=== PATIENT | female | born 1955 | race Caucasian/White ===

== ENCOUNTER 2016-06-28 18:59 | Emergency (ER) | payer MEDICAID, OTHER ==
[~2016-06-28] VITALS: Ht 154.9 cm; Wt 52.0 kg
[~2016-06-28 18:59] MED LIST: ACET-2047 PO; ACET500C5 PO; BENZ100C70 PO; FLUT16SP24 NASAL; GUAI118L14 PO; HYD25 PO; IBUP-1542 PO; PROM6.25 PO
[2016-06-28 19:14] VITALS: Ht 154.9 cm; Wt 52.0 kg
[2016-06-28] MEDS ORDERED: PRED15SO PO (19:28)
[2016-06-28] MEDS ORDERED: AMOX250S66 PO (19:28)
[2016-06-28] MEDS ORDERED: IBUP100O10 PO (19:28)
[2016-06-28] MEDS ORDERED: ATEN-51 PO (19:35)
--- NOTE | 2016-06-28 19:37 | ERD ---
ER Documentation Chief Complaint Date/Time DATE: 06/28/16 TIME: 19:[address] x 1 week that is worse today HPI 60 year old female presents here in the ER for complaints of sorethroat for 1 week. Patient describes the pain as throbbing pain 7/10 scale, worst on swallowing accompanied with hoarseness of the voice. Denies stridor or shortness of breath. Patient's complaining of on and off fever. Patient denies any cough, runny nose or nasal congestion. Patient did not take any medications to help with symptoms. ROS All systems reviewed and are negative except as per history of present illness. Medications Home Meds Active Scripts Prednisolone* (Prelone*) 15 Mg/5 Ml Solution, 5 ML PO BID for 5 Days, BOTTLE Prov:MARK MORALES NP 06/28/16 Ibuprofen (Ibuprofen) 100 Mg/5 Ml Oral.susp, 20 ML PO Q6H Y for PAIN AND OR ELEVATED TEMP, #8 OZ Prov:MARK MORALES NP 06/28/16 Amoxicillin* (Amoxicillin* Susp) 250 Mg/5 Ml Susp.recon, 10 ML PO TID for 10 Days, BOTTLE Prov:MARK MORALES NP 06/28/16 Acetaminophen* (Tylophen*) 500 Mg Capsule, 500 MG PO Q6H Y for FEVER, #15 TAB Prov:ALLY WYNNE NP 05/25/15 Guaifenesin/Codeine Phos (Guaifenesin W/Codeine Liq) 473 Ml Liquid, 10 ML PO Q6 , #240 Prov:ALLY WYNNE NP 05/25/15 Hydrochlorothiazide* (Hydrochlorothiazide*) 25 Mg Tab, 25 MG PO DAILY, #30 TAB Prov:TAZ JOHN PA-C 11/24/14 Fluticasone Propionate* (Flonase* Nasal) 50 Mcg/Meredith - 16 Gm Meredith.susp, 1 SPRAY NASAL DAILY, #1 BOTTLE Prov:TAZ JOHN PA-C 11/24/14 Promethazine w/Codeine* (Phenergan w/Codeine* Syrup) 5 Ml Syrup, 5 ML PO BEDSIDE MEDICATION Y for COUGH, #6 OZ Prov:TAZ JOHN PA-C 11/24/14 Benzonatate* (Tessalon Perle*) 100 Mg Capsule, 200 MG PO TID Y for COUGH, #30 CAP Prov:ALVAROTAZ PA-C 11/24/14 Acetaminophen* (Acetaminophen*) 650 Mg Tablet, 650 MG PO Q4H Y for PAIN AND OR ELEVATED TEMP, #15 TAB Prov:CHO,JAREN 10/19/14 Ibuprofen* (Motrin*) 600 Mg Tab, 600 MG PO Q6 for PAIN, #15 TAB Prov:CHO,JAREN 10/19/14 Promethazine w/Codeine* (Phenergan w/Codeine* Syrup) 5 Ml Syrup, 5 ML PO Q4H Y for COUGH, #4 OZ Prov:CHO,JAREN 10/19/14 Benzonatate* (Tessalon Perle*) 100 Mg Capsule, 200 MG PO Q8H Y for COUGH, #21 CAP Prov:CHO,JAREN 10/19/14 Reported Medications Atenolol* (Atenolol*) Unknown Strength Tablet, PO BID, #60 TAB 06/28/16 Allergies Allergies: Coded Allergies: No Known Allergy (Unverified , 04/07/14) PMhx/Soc History of Surgery: No Anesthesia Reaction: No Hx Neurological Disorder: No Hx Respiratory Disorders: No Hx Cardiac Disorders: Yes (HTN) Hx Psychiatric Problems: No Hx Miscellaneous Medical Probl: No Hx Alcohol Use: No Hx Substance Use: No Hx Tobacco Use: No FmHx Family History: No coronary disease, No diabetes, No other Physical Exam Vitals Vital Signs Date Time Temp Pulse Resp B/P Pulse Ox O2 Delivery O2 Flow Rate FiO2 06/28/16 19:14 98.2 105 16 197/84 99 Physical Exam GENERAL: The patient is well developed and appropriate for usual state of health, in no apparent distress. HEENT: Atraumatic. Ears: Normal tympanic membrane, no erythema or bulging. No ear canal swelling. No ear discharge. Nose: normal nasal turbinates, no erythema or swelling. Normal nasal discharge. Throat: oropharynx erythematous. No tonsillar swelling or tonsillar exudates. Noted hoarseness of the voice. No lymphadenopathy. CHEST: Clear to auscultation bilaterally. There are no rales, wheezes or rhonchi. HEART: Regular rate and rhythm. No murmurs, clicks, rubs or gallops. No S3 or S4. ABDOMEN: Soft, nontender and nondistended. Good bowel sounds. No rebound or guarding. No gross peritonitis. No gross organomegaly or masses. No Cho sign or McBurney point tenderness. BACK: No midline or flank tenderness. EXTREMITIES: Equal pulses bilaterally. There is no peripheral clubbing, cyanosis or edema. No focal swelling or erythema. Full range of motion. Grossly neurovascularly intact. NEURO: Alert and oriented. Cranial nerves 2-12 intact. Motor strength in all 4 extremities with 5/5 strength. Sensation grossly intact. Normal speech and gait. SKIN: There is no apparent rash or petechia. The skin is warm and dry. HEMATOLOGIC AND LYMPHATIC: There is no evidence of excessive bruising or lymphedema. No gross cervical, axillary, or inguinal lymphadenopathy. Procedures/MDM Medical decision making: Patient symptoms is likely consistent with laryngitis, possible bacterial infection. The symptoms of oral airway obstruction noted, no epiglottitis, no symptoms of peritonsillar abscess, no stridor. No symptoms of respiratory distress. No symptoms of any sepsis, patient appears well and is hemodynamically stable. Prescription was given for amoxicillin, ibuprofen, Prelone, was given liquid form, patient is advised follow up primary care doctor in 2 days for reevaluation of symptoms, if worse to return to emergency department, patient was also advised to see ENT specialist if symptoms continues to persist. Departure Diagnosis: Primary Impression: Laryngitis Condition: Stable Patient Instructions: Laryngitis MARK MORALES NP Jun 28, 2016 19:37
== END 2016-06-28 19:30 | disposition home or self-care (01) ==
LOC: E/R 18:59
DX: J04.0 Acute laryngitis (principal); I10 Essential (primary) hypertension
CPT/HCPCS: 99284

== ENCOUNTER 2016-09-25 10:44 | Emergency (ER) | payer MEDICAID, OTHER ==
[~2016-09-25] VITALS: Ht 149.9 cm; Wt 50.0 kg
[~2016-09-25 10:44] MED LIST changes: +AMOX250S66 PO; +ATEN-51 PO; +IBUP100O10 PO; +PRED15SO PO
[2016-09-25 10:50] VITALS: Ht 149.9 cm; Wt 50.0 kg
[2016-09-25] MEDS ORDERED: SOD CHLORIDE 0.9% 500 ML IV STA (11:08)
[2016-09-25] MEDS ORDERED: morphine 4 MG/ML VIAL IV STA (11:08)
[2016-09-25] MEDS ORDERED: ONDANSETRON 4 MG INJ IV STA (11:08)
[2016-09-25] MEDS ORDERED: ATEN50TA PO (11:25)
--- NOTE | 2016-09-25 11:45 | RADRPT ---
PROCEDURE: XR Chest. CLINICAL INDICATION: Abdominal pain TECHNIQUE: Single frontal view of the chest was obtained COMPARISON: 02/11/2016 FINDINGS: The heart and mediastinum are within normal limits. The lungs are clear. There is no pleural effusion or pneumothorax. RPTAT: AA IMPRESSION: No acute disease. .Jimmy Chávez MD, MD Date Time Electronically viewed and signed by .Jimmy Chávez MD, MD on 09/25/2016 11:44 .S/
[2016-09-25 11:46] LABS: ADD SCAN DIFF NO
[2016-09-25 11:48] LABS: BASOPHILS % 0.2 % (0.0-2.0); EOSINOPHILS # 0.1 10^3/ul (0.0-0.5); EOSINOPHILS % 0.6 % (0.0-7.0); HEMATOCRIT 45.1 % (37.0-47.0); HEMOGLOBIN 14.6 g/dl (12.0-16.0); LYMPHOCYTES # 1.5 10^3/ul (0.8-2.9); LYMPHOCYTES % 15.1 % (15.0-51.0); MEAN CORPUSCULAR HEMOGLOBIN 28.8 pg (29.0-33.0); MEAN CORPUSCULAR HGB CONC 32.4 g/dl (32.0-37.0); MEAN PLATELET VOLUME 11.5 fl (7.4-10.4); MONOCYTE # 0.3 10^3/ul (0.3-0.9); MONOCYTES % 3.4 % (0.0-11.0); NEUTROPHIL # 7.8 10^3/ul (1.6-7.5); NEUTROPHILS % 80.3 % (39.0-77.0); PLATELET COUNT 187 10^3/UL (140-415); RED BLOOD COUNT 5.07 10^6/ul (4.20-5.40); RED CELL DISTRIBUTION WIDTH 12.7 % (11.5-14.5); WHITE BLOOD COUNT 9.7 10^3/ul (4.8-10.8)
[2016-09-25 11:52] LABS: ADD UMIC YES; URINE BILIRUBIN (Dip) NEGATIVE (NEGATIVE); URINE BLOOD (Dip) 3+ (NEGATIVE); URINE COLOR LT. YELLOW (YELLOW); URINE GLUCOSE (Dip) NEGATIVE (NEGATIVE); URINE KETONES (Dip) TRACE (NEGATIVE); URINE LEUKOCYTE ESTERASE (Dip) TRACE (NEGATIVE); URINE NITRITE (Dip) NEGATIVE (NEGATIVE); URINE TOTAL PROTEIN (Dip) NEGATIVE (NEGATIVE); URINE UROBILINOGEN (Dip) 0.2 E.U./dL (0.1-1.0)
[2016-09-25 12:01] LABS: BACTERIA,URINE FEW
[2016-09-25 12:06] LABS: INR 0.96; PROTIME 12.8 Sec (12.2-14.2)
[2016-09-25 12:07] LABS: PARTIAL THROMBOPLASTIN TIME 30.3 Sec (25.0-35.0)
--- NOTE | 2016-09-25 12:13 | RADRPT ---
PROCEDURE: CT abdomen and pelvis without contrast. CLINICAL INDICATION: Abdominal pain TECHNIQUE: Continues 2.5 mm axial images were obtained from the domes of the diaphragms to the inf erior pubic rami. No oral or intravenous contrast was administered. The calculated dose length prod uct (DLP) = 333.93 mGy-cm. Exam CTDlvol = 6.36 mGy. One or more of the following dose reduction t echniques were used: Automated exposure control, adjustment of the mA and or KV according to patient size, or use of iterative reconstruction technique. One or more of the following dose reduction te chniques were used: Automated exposure control, adjustment of the mA and or KV according to patient size, or use of iterative reconstruction technique. COMPARISON: None. FINDINGS: Images of the lung bases demonstrate mild linear basilar atelectasis. No pleural or pericardial flu id is seen. Hearts mildly enlarged in size. Liver, gallbladder, pancreas, spleen, adrenals, and kidneys are within normal limits. There is no e vidence renal calculi or obstructive uropathy. Aorta is normal in caliber. No pathologically enlar ged mesenteric lymph nodes are seen. The stomach and small bowel loops are within normal limits. N o small bowel dilatation or obstruction is seen. No free fluid, free air, abscess is noted in the u pper abdomen. CT pelvis: Images through the pelvis demonstrate no free fluid, free air, abscess. Bladder is part ially distended and grossly unremarkable. There is a 7 mm calcified posterior uterine fibroid. Oth erwise, the uterus and adnexa are within normal limits. Evaluation of the colon demonstrates occasi onal diverticulosis. There is no acute diverticulitis or colitis. Normal appendix is seen. The te rminal ileum is unremarkable. There are no pathologically enlarged iliac chain lymph nodes No destructive bony lesions are seen. IMPRESSION: 1. No acute inflammatory process, mass, or adenopathy. 2. Occasional diverticulosis. No acute diverticulitis. 3. Normal appendix and terminal ileum. 4. Calcified uterine fibroid RPTAT: HH .Jaciel Miller MD, MD Date Time Electronically viewed and signed by .Jaciel Miller MD, on 09/25/2016 12:13 .W/
[2016-09-25 12:18] LABS: ALBUMIN 4.4 g/dl (3.3-4.9)
[2016-09-25 12:19] LABS: CHLORIDE 101 mmol/L (97-110); POTASSIUM 3.5 mmol/L (3.5-5.1); SODIUM 140 mmol/L (135-144)
[2016-09-25 12:21] LABS: ALBUMIN/GLOBULIN RATIO 1.25; ANION GAP 17 (8-16); ASPARTATE AMINO TRANSFERASE 25 IU/L (15-46); BILIRUBIN,INDIRECT 0.9 mg/dl (0-1.1); BILIRUBIN,TOTAL 0.9 mg/dl (0.2-1.3); CARBON DIOXIDE 26 mmol/L (21-31); CREATININE 0.63 mg/dl (0.44-1.00); TOTAL PROTEIN 7.9 g/dl (6.1-8.1)
[2016-09-25 12:22] LABS: ALANINE AMINOTRANSFERASE 31 IU/L (13-69); ALKALINE PHOSPHATASE 91 IU/L (42-121); BLOOD UREA NITROGEN 16 mg/dl (7-20); GLUCOSE 147 mg/dl (70-220)
[2016-09-25] MEDS ORDERED: LIDOCAINE 1% (MDV) 20 ML INJ ONE (12:40)
[2016-09-25 12:42] LABS: TROPONIN-I < 0.012 ng/ml (0.00-0.12)
--- NOTE | 2016-09-25 13:09 | ERD ---
ER Documentation Chief Complaint Date/Time DATE: 09/25/16 TIME: 13:08 Chief Complaint vomitting, body chills and headache since waking this am. HPI This is a 61-year-old female with vomiting body chills and headache since waking up this morning. She said she has had fever on and off as well as in the past 2 days. One episode of vomiting which is nonbilious and nonbloody. Normal bowel habits. No other current complaints. No sick contacts. ROS All systems reviewed and are negative except as per history of present illness. Medications Home Meds Reported Medications Atenolol* (Atenolol*) 50 Mg Tablet, 50 MG PO BID, #60 TAB 09/25/16 Discontinued Reported Medications Atenolol* (Atenolol*) Unknown Strength Tablet, PO BID, #60 TAB 06/28/16 Discontinued Scripts Prednisolone* (Prelone*) 15 Mg/5 Ml Solution, 5 ML PO BID for 5 Days, BOTTLE Prov:MARK MORALES NP 06/28/16 Ibuprofen (Ibuprofen) 100 Mg/5 Ml Oral.susp, 20 ML PO Q6H Y for PAIN AND OR ELEVATED TEMP, #8 OZ Prov:MARK MORALES NP 06/28/16 Amoxicillin* (Amoxicillin* Susp) 250 Mg/5 Ml Susp.recon, 10 ML PO TID for 10 Days, BOTTLE Prov:MARK MORALES NP 06/28/16 Acetaminophen* (Tylophen*) 500 Mg Capsule, 500 MG PO Q6H Y for FEVER, #15 TAB Prov:ALLY WYNNE NP 05/25/15 Guaifenesin/Codeine Phos (Guaifenesin W/Codeine Liq) 473 Ml Liquid, 10 ML PO Q6 , #240 Prov:ALLY WYNNE NP 05/25/15 Hydrochlorothiazide* (Hydrochlorothiazide*) 25 Mg Tab, 25 MG PO DAILY, #30 TAB Prov:TAZ JOHN PA-C 11/24/14 Fluticasone Propionate* (Flonase* Nasal) 50 Mcg/[place] - 16 Gm [place].susp, 1 SPRAY NASAL DAILY, #1 BOTTLE Prov:TAZ JOHN PA-C 7/18/15 Promethazine w/Codeine* (Phenergan w/Codeine* Syrup) 5 Ml Syrup, 5 ML PO BEDSIDE MEDICATION Y for COUGH, #6 OZ Prov:TAZ JOHN PA-C 11/24/14 Benzonatate* (Tessalon Perle*) 100 Mg Capsule, 200 MG PO TID Y for COUGH, #30 CAP Prov:TAZ JOHN PA-C 11/24/14 Acetaminophen* (Acetaminophen*) 650 Mg Tablet, 650 MG PO Q4H Y for PAIN AND OR ELEVATED TEMP, #15 TAB Prov:CHO,JAREN 10/19/14 Ibuprofen* (Motrin*) 600 Mg Tab, 600 MG PO Q6 for PAIN, #15 TAB Prov:CHO,JAREN 10/19/14 Promethazine w/Codeine* (Phenergan w/Codeine* Syrup) 5 Ml Syrup, 5 ML PO Q4H Y for COUGH, #4 OZ Prov:CHO,JAREN 10/19/14 Benzonatate* (Tessalon Perle*) 100 Mg Capsule, 200 MG PO Q8H Y for COUGH, #21 CAP Prov:CHO,JAREN 10/19/14 Allergies Allergies: Coded Allergies: No Known Allergy (Unverified , 09/25/16) PMhx/Soc History of Surgery: No Anesthesia Reaction: No Hx Neurological Disorder: No Hx Respiratory Disorders: No Hx Cardiac Disorders: Yes (HTN) Hx Psychiatric Problems: No Hx Miscellaneous Medical Probl: No Hx Alcohol Use: No Hx Substance Use: No Hx Tobacco Use: No Smoking Status: Former smoker Physical Exam Vitals Vital Signs Date Time Temp Pulse Resp B/P Pulse Ox O2 Delivery O2 Flow Rate FiO2 09/25/16 10:50 99.1 98 20 195/95 96 Physical Exam Const: [] Head: Atraumatic Eyes: Normal Conjunctiva ENT: Normal External Ears, Nose and Mouth. Neck: Full range of motion..~ No meningismus. Resp: Clear to auscultation bilaterally Cardio: Regular rate and rhythm, no murmurs Abd: Soft, non tender, non distended. Normal bowel sounds Skin: No petechiae or rashes Back: No midline or flank tenderness Ext: No cyanosis, or edema Neur: Awake and alert Psych: Normal Mood and Affect Result Diagram: 09/25/16 1120 09/25/16 1120 Results 24 hrs Laboratory Tests Test 09/25/16 11:17 09/25/16 11:20 09/25/16 11:21 Lactic Acid Level 1.7mmol/L White Blood Count 9.710^3/ul Red Blood Count 5.0710^6/ul Hemoglobin 14.6g/dl Hematocrit 45.1% Mean Corpuscular Volume 89.0fl Mean Corpuscular Hemoglobin 28.8pg Mean Corpuscular Hemoglobin Concent 32.4g/dl Red Cell Distribution Width 12.7% Platelet Count 91945^3/UL Mean Platelet Volume 11.5fl Neutrophils % 80.3% Lymphocytes % 15.1% Monocytes % 3.4% Eosinophils % 0.6% Basophils % 0.2% Nucleated Red Blood Cells % 0.0/100WBC Neutrophils # 7.810^3/ul Lymphocytes # 1.510^3/ul Monocytes # 0.310^3/ul Eosinophils # 0.110^3/ul Basophils # 0.010^3/ul Nucleated Red Blood Cells # 0.010^3/ul Prothrombin Time 12.8Sec Prothrombin Time Ratio 1.0 INR International Normalized Ratio 0.96 Activated Partial Thromboplast Time 30.3Sec Sodium Level 140mmol/L Potassium Level 3.5mmol/L Chloride Level 101mmol/L Carbon Dioxide Level 26mmol/L Anion Gap 17 Blood Urea Nitrogen 16mg/dl Creatinine 0.63mg/dl Glucose Level 147mg/dl Calcium Level 9.0mg/dl Total Bilirubin 0.9mg/dl Direct Bilirubin 0.00mg/dl Indirect Bilirubin 0.9mg/dl Aspartate Amino Transf (AST/SGOT) 25IU/L Alanine Aminotransferase (ALT/SGPT) 31IU/L Alkaline Phosphatase 91IU/L Troponin I < 0.012ng/ml Total Protein 7.9g/dl Albumin 4.4g/dl Globulin 3.50g/dl Albumin/Globulin Ratio 1.25 Lipase 128U/L Urine Color LT. YELLOW Urine Clarity CLEAR Urine pH 6.5 Urine Specific [place] 1.015 Urine Ketones TRACE Urine Nitrite NEGATIVE Urine Bilirubin NEGATIVE Urine Urobilinogen 0.2 E.U./dL Urine Leukocyte Esterase TRACE Urine Microscopic RBC 5-10/HPF Urine Microscopic WBC 0-2/HPF Urine Epithelial Cells FEW Urine Bacteria FEW Urine Hemoglobin 3+ Urine Glucose NEGATIVE% Urine Total Protein NEGATIVE Current Medications Medications (Trade) Dose Ordered Sig/Vincent Route PRN Reason Start Time Stop Time Status Last Admin Dose Admin Sodium Chloride (NS) 500 ml @ 500 mls/hr Q1H STAT IV 09/25/16 11:08 09/25/16 12:07 DC 09/25/16 11:25 Morphine Sulfate (morphine) 4 mg ONCE STAT IV 09/25/16 11:08 09/25/16 11:09 DC 09/25/16 11:25 Ondansetron HCl (Zofran Inj) 4 mg ONCE STAT IV 09/25/16 11:08 09/25/16 11:10 DC 09/25/16 11:25 Lidocaine (Xylocaine 1% (Mdv) 20 ml) 20 ml STK-MED ONCE .ROUTE 09/25/16 12:40 09/25/16 12:41 DC Procedures/MDM EKG: Rate/Rhythm: Normal Sinus Rhythm QRS, ST, T-waves: No changes consistent w/ acute ischemia Impression: No evidence of ischemia or arrhythmia Chest X-ray 1V Interpreted by me: Soft Tissue: No acute abnormalities Bones: No acute abnormalities Mediastinum/Cardiac Silhouette/Lungs: No acute abnormalities Medical decision-makin female evidence of UTI. CT abdomen pelvis is negative for surgical abdomen. At this point clinically stable for outpatient management. Patient be discharged home with Cipro, Zofran, tramadol for pain. Return in 8 hours for serial abdominal exams. Results discussed with patient at the bedside. Departure Diagnosis: Primary Impression: Urinary tract infection Urinary tract infection type: acute cystitis Hematuria presence: without hematuria Qualified Code: N30.00 - Acute cystitis without hematuria Condition: Stable CASSIDY JESUS September 25, 2016 13:09
[2016-09-25] MEDS ORDERED: CIPR500T4 PO (13:15)
[2016-09-25] MEDS ORDERED: TRAM50TA2 PO (13:15)
[2016-09-25] MEDS ORDERED: ONDA4TAB14 PO (13:15)
[2016-09-25] MEDS ORDERED: CEFTRIAXONE 1 GM/50 ML (PMX) 50 ML IVPB ONE (13:30)
== END 2016-09-25 14:09 | disposition home or self-care (01) ==
LOC: E/R 10:44
DX: N30.00 Acute cystitis without hematuria (principal); I10 Essential (primary) hypertension; R40.2142 Coma scale, eyes open, spontaneous, at arrival to emergency department; R40.2252 Coma scale, best verbal response, oriented, at arrival to emergency department; R40.2362 Coma scale, best motor response, obeys commands, at arrival to emergency department; R10.9 Unspecified abdominal pain; Z87.891 Personal history of nicotine dependence
CPT/HCPCS: 36415; 71010; 74176; 80053; 81001; 83605; 83690; 84484; 85025; 85610; 85730; 96374; 96375; J0696; J2270; J2405; J7040; Z7502; Z7610; 81003; 93005

== ENCOUNTER 2016-12-02 16:25 | Emergency (ER) | payer OTHER ==
[~2016-12-02] VITALS: Ht 154.9 cm; Wt 47.0 kg
[~2016-12-02 16:25] MED LIST changes: -ACET-2047 PO; -ACET500C5 PO; -AMOX250S66 PO; -ATEN-51 PO; +ATEN50TA PO; -BENZ100C70 PO; +CIPR500T4 PO; -FLUT16SP24 NASAL; -GUAI118L14 PO; -HYD25 PO; -IBUP-1542 PO; -IBUP100O10 PO; +ONDA4TAB14 PO; -PRED15SO PO; -PROM6.25 PO; +TRAM50TA2 PO
[2016-12-02 16:27] VITALS: Ht 154.9 cm; Wt 47.0 kg
[2016-12-02] MEDS ORDERED: ASPIRIN 325 MG TAB PO STA (20:23)
[2016-12-02] MEDS ORDERED: ALBUTEROL 0.083% (NEB) 2.5 MG/3 ML AMP NEB STA (20:27)
[2016-12-02] MEDS ORDERED: METHYLPREDNISOLONE 125 MG INJ IV STA (20:27)
[2016-12-02] MEDS ORDERED: IPRATROPIUM (NEB) 0.5 MG/2.5 ML AMP NEB STA (20:27)
[2016-12-02 21:23] LABS: ABNORMAL IP MESSAGE 1; HEMATOCRIT 42.6 % (37.0-47.0); HEMOGLOBIN 14.4 g/dl (12.0-16.0); MEAN CORPUSCULAR HEMOGLOBIN 30.3 pg (29.0-33.0); MEAN CORPUSCULAR HGB CONC 33.8 g/dl (32.0-37.0); MEAN CORPUSCULAR VOLUME 89.7 fl (82.0-101.0); MEAN PLATELET VOLUME 12.3 fl (7.4-10.4); PLATELET COUNT 200 10^3/UL (140-415); RED BLOOD COUNT 4.75 10^6/ul (4.20-5.40); RED CELL DISTRIBUTION WIDTH 13.2 % (11.5-14.5); WHITE BLOOD COUNT 10.5 10^3/ul (4.8-10.8)
[2016-12-02 21:32] LABS: INR 0.93; POSITIVE DIFF @See below; PROTIME 12.5 Sec (12.2-14.2)
[2016-12-02 21:33] LABS: PARTIAL THROMBOPLASTIN TIME 31.5 Sec (25.0-35.0)
[2016-12-02 21:39] LABS: ALBUMIN 4.7 g/dl (3.3-4.9); ALBUMIN/GLOBULIN RATIO 1.17; BILIRUBIN,INDIRECT 0.4 mg/dl (0-1.1); BILIRUBIN,TOTAL 0.4 mg/dl (0.2-1.3); CALCIUM 9.8 mg/dl (8.4-10.2); CREATININE 0.72 mg/dl (0.44-1.00); POTASSIUM 4.9 mmol/L (3.5-5.1); TOTAL PROTEIN 8.7 g/dl (6.1-8.1)
[2016-12-02 21:48] LABS: CK-MB 0.4 ng/ml (0.0-2.4)
--- NOTE | 2016-12-02 21:51 | RADRPT ---
PROCEDURE: XR Chest. CLINICAL INDICATION: Chest Pain. TECHNIQUE: Single frontal view of the chest was obtained. COMPARISON: None. FINDINGS: The cardiomediastinal silhouette is mildly enlarged. Pulmonary vasculature is within normal limits. There are linear densities in the right upper lung and right lower lung.. No signs of pleural fluid or pneumothorax are seen. The osseous structures and soft tissues are unre markable. IMPRESSION: 1. Mild cardiomegaly. 2. Linear markings in the right upper lung and right lower lung, likely reflecting scarring. Minim al right lower lung infiltrate appears less likely, but not excluded. RPTAT: HBST .Hu Saunders MD, MD Date Time Electronically viewed and signed by .Hu Saunders MD, on 12/02/2016 21:51 .T/
[2016-12-02 21:52] LABS: TROPONIN-I 0.023 ng/ml (0.00-0.12)
--- NOTE | 2016-12-02 22:17 | ERD ---
ER Documentation Chief Complaint Date/Time DATE: 12/02/16 TIME: 22:13 Chief Complaint CP with SOB x last night HPI This is a very pleasant 61-year-old female that presents to the emergency department complaining of 2 weeks of a productive cough. The patient works as a nanny. She indicates she is been around children that have been sick with upper respiratory infections. Contrary to the triage note the patient denies any chest pain or pressure that radiates the neck arm back or jaw but does state she experiences sharp bilateral chest discomfort only present while coughing. The patient has not experienced any shortness of breath but indicates that while lying supine she had multiple episodes of coughing and felt it was difficult to breathe due to the increased phlegm production. She denies any night sweats or weight loss. She has had no recent travel. She is not currently on antibiotics. She denies any swelling of her lower extremities. ROS All systems reviewed and are negative except as per history of present illness. Medications Home Meds Reported Medications Atenolol* (Atenolol*) 50 Mg Tablet, 50 MG PO BID, #60 TAB 09/25/16 Discontinued Scripts Ondansetron (Ondansetron Odt) 4 Mg Tab.rapdis, 4 MG PO Q6H Y for NAUSEA AND/OR VOMITING, #10 TAB Prov:CASSIDY JESUS 09/25/16 Tramadol HCl (Tramadol HCl) 50 Mg Tablet, 50 MG PO Q4 Y for PAIN, #20 TAB Prov:CASSIDY JESUS 09/25/16 Ciprofloxacin Hcl* (Ciprofloxacin Hcl*) 500 Mg Tablet, 500 MG PO BID for 7 Days , TAB Prov:CASSIDY JESUS 09/25/16 Allergies Allergies: Coded Allergies: No Known Allergy (Unverified , 12/02/16) PMhx/Soc History of Surgery: No Anesthesia Reaction: No Hx Neurological Disorder: No Hx Respiratory Disorders: No Hx Cardiac Disorders: Yes (HTN) Hx Psychiatric Problems: No Hx Miscellaneous Medical Probl: No Hx Alcohol Use: No Hx Substance Use: No Hx Tobacco Use: No Smoking Status: Never smoker Physical Exam Vitals Vital Signs Date Time Temp Pulse Resp B/P Pulse Ox O2 Delivery O2 Flow Rate FiO2 12/02/16 21:52 64 16 97 21 12/02/16 21:45 62 17 160/76 99 Room Air 12/02/16 20:25 98.3 71 16 171/90 96 Room Air 12/02/16 16:27 98.0 80 16 212/92 96 Physical Exam Constitutional:Well-developed. Well-nourished. HEENT:Normocephalic. Atraumatic.Pupils were equal round reactive to light. Moist mucous membranes.No tonsillar exudates. Neck: No nuchal rigidity. No lymphadenopathy. No posterior cervical spine tenderness or step-offs. Respiratory: Not using accessory muscles of respiration.Lungs were clear to auscultation bilaterally. No rhonchi. No rales. Mild wheezing bilaterally. Cardiovascular: Regular rate regular rhythm.No murmurs. No rubs were appreciated.S1, S2 normal. Distal pulses are palpable 2+ bilaterally. GI: Abdomen was soft. Nontender. Non Distended. No pulsatile abdominal masses or bruits. No rebound. No guarding. Bowel sounds were present and normal. Muscle skeletal: Full range of motion of both the upper and lower extremities bilaterally.Normal muscle tone.No assymetrical calf tenderness or swelling. Skin: No petechia, no purpura. No lesions on the palms or the soles of the feet. No maculopapular rash. NEURO: Patient was alert, awake, orientated x3.No facial droop. Gait observed and normal with no ataxia.Speech had regular rate and rhythm. No focal neurological deficits. Result Diagram: 12/02/16204312/02/162043 Results 24 hrs Laboratory Tests Test 12/02/16 20:44 White Blood Count 10.510^3/ul Red Blood Count 4.7510^6/ul Hemoglobin 14.4g/dl Hematocrit 42.6% Mean Corpuscular Volume 89.7fl Mean Corpuscular Hemoglobin 30.3pg Mean Corpuscular Hemoglobin Concent 33.8g/dl Red Cell Distribution Width 13.2% Platelet Count 37179^3/UL Mean Platelet Volume 12.3fl Nucleated Red Blood Cells % 0.0/100WBC Prothrombin Time 12.5Sec Prothrombin Time Ratio 1.0 INR International Normalized Ratio 0.93 Activated Partial Thromboplast Time 31.5Sec Sodium Level 144mmol/L Potassium Level 4.9mmol/L Chloride Level 102mmol/L Carbon Dioxide Level 26mmol/L Anion Gap 21 Blood Urea Nitrogen 20mg/dl Creatinine 0.72mg/dl Glucose Level 91mg/dl Calcium Level 9.8mg/dl Total Bilirubin 0.4mg/dl Direct Bilirubin 0.00mg/dl Indirect Bilirubin 0.4mg/dl Aspartate Amino Transf (AST/SGOT) 41IU/L Alanine Aminotransferase (ALT/SGPT) 28IU/L Alkaline Phosphatase 97IU/L Creatine Kinase 66IU/L Creatine Kinase Index 0.6 Creatinine Kinase MB (Mass) 0.40ng/ml Troponin I 0.023ng/ml B-Type Natriuretic Peptide 650PG/ML Total Protein 8.7g/dl Albumin 4.7g/dl Globulin 4.00g/dl Albumin/Globulin Ratio 1.17 Current Medications Medications (Trade) Dose Ordered Sig/Vincent Route PRN Reason Start Time Stop Time Status Last Admin Dose Admin Aspirin (Aspirin) 325 mg ONCE STAT PO 12/02/16 20:23 12/02/16 20:24 DC 12/02/16 20:42 Albuterol (Proventil 0.083% (Neb)) 5 mg ONCE STAT NEB 12/02/16 20:27 12/02/16 20:33 DC 12/02/16 21:51 Ipratropium [place] (Atrovent 0.02% (Neb)) 0.5 mg ONCE STAT NEB 12/02/16 20:27 12/02/16 20:33 DC 12/02/16 21:51 Methylprednisolone Sodium Succinate (Solu-Medrol) 125 mg ONCE STAT IV 12/02/16 20:27 12/02/16 20:33 DC 12/02/16 20:42 Procedures/MDM The patient presented to the emergency department with dyspnea. My differential diagnosis included but was not limited to upper airway obstruction, CHF, pulmonary embolism, cardiac ischemia, pneumonia, pneumothorax, anemia, drug overdose, pulmonary edema, COPD or asthma. The patient was placed in a environmental monitoring specialist continuous pulse oximetry and IV access was administered. The patient appeared to have clinical dehydration and physical exam findings are suggestive of acute bronchitis versus pneumonia. Chest radiograph for and reviewed by myself did indicate that there was a possible infiltrate in the right lower lobe. The patient has no risk factors for tuberculosis. I did feel that this was likely an infectious process given her symptoms of over 2 weeks. She received nebulizer treatments of albuterol Atrovent and had also been given 125 mg of Solu-Medrol. 12 Lead EKG tracing ordered and reviewed by myself showed: Normal sinus rhythm of 81 bpm and no arrhythmia. ID interval normal. QRS duration normal. No ST segment elevation No ST segment depression. No changes consistent with acute ischemia. There is no electrolyte abnormalities. The patient stated she felt comfortable being discharged home on I did feel her chest discomfort was more likely pleurisy and she has no risk factors for pulmonary embolism. The patient was discharged home in fair condition. They were instructed to return to the emergency department at any time if there was any worsening of their condition. The patient stated they would follow up with their PCP in the next 24-48 hours to initiate a suitable medication regimen under the care of their PCP as well as to allow their PCP to monitor any drug reactions. The patient was discharged home with prescriptions after they gave informed consent to the new medication. They were also fully informed by myself on the adverse effects and adverse drug interactions in order to provide adequate safeguards to prevent possible adverse reactions to medications. Departure Diagnosis: Primary Impression: Pneumonia Pneumonia type: due to unspecified organism Laterality: right Lung location : lower lobe of lung Qualified Code: J18.1 - Pneumonia of right lower lobe due to infectious organism Additional Impression: Pleuritic chest pain Condition: Fair BARBIE MONTGOMERY Dec 02, 2016 22:17
[2016-12-02] MEDS ORDERED: AZIT250T94 PO (22:19)
[2016-12-02] MEDS ORDERED: ACET1TAB40 PO (22:19)
[2016-12-02] MEDS ORDERED: PRED20TA PO (22:19)
[2016-12-02 22:21] LABS: BASOPHIL # 0.1 10^3/ul (0.0-0.1); EOSINOPHILS # 0.5 10^3/ul (0.0-0.5); LYMPHOCYTES # 5.7 10^3/ul (0.8-2.9); MONOCYTE # 0.3 10^3/ul (0.3-0.9); NEUTROPHIL # 3.9 10^3/ul (1.6-7.5)
[2016-12-02 22:55] VITALS: BP 143/71; PULSE 68; RESP 17; TEMP 98.3
== END 2016-12-02 22:56 | disposition home or self-care (01) ==
LOC: E/R 16:25
DX: J18.1 Lobar pneumonia, unspecified organism (principal); R40.2252 Coma scale, best verbal response, oriented, at arrival to emergency department; R07.89 Other chest pain; I10 Essential (primary) hypertension; R40.2142 Coma scale, eyes open, spontaneous, at arrival to emergency department; R40.2362 Coma scale, best motor response, obeys commands, at arrival to emergency department; R06.02 Shortness of breath
CPT/HCPCS: 71010; 80053; 82550; 82553; 83880; 84484; 85025; 85610; 85730; 93005; 94664; 96374; J2930; Z7502; Z7610

== ENCOUNTER 2016-12-24 10:22 | Emergency (ER) | END 2016-12-24 12:57 | disposition home or self-care (01) | DX: R05 Cough (principal); I10 Essential (primary) hypertension | CPT/HCPCS: 71010; Z7502; Z7610 ==

== ENCOUNTER 2018-03-28 07:46 | Emergency (ER) | END 2018-03-28 09:17 | disposition home or self-care (01) ==

== ENCOUNTER 2018-03-29 15:46 | Emergency (ER) | END 2018-03-29 19:16 | disposition home or self-care (01) ==